=== PATIENT | female | born 1975 | race Caucasian/White ===

== ENCOUNTER → 2017-08-28 | Outpatient (CLI) | payer BC ==
--- NOTE | 2017-08-28 16:15 | RAD ---
Lumbar spine, 3 views, 08/28/2017: History: Left sciatic nerve pain No acute fracture or dislocation is identified. There is a slight lumbar scoliosis. There is mild narrowing of the L5-S1 disc space. Mild scattered marginal spurs are present. There appear to be mild degenerative changes involving the facet joints in the lower lumbar spine. The paraspinous soft tissues are unremarkable. IMPRESSION: 1. Mild degenerative change, particularly at the L5-S1 disc level. 2. No acute bony abnormality is detected.
== END | disposition home or self-care (01) ==
LOC: RAD 15:34
PROVIDERS: ATTEND Nurse Practitioner Family
DX: M54.32 Sciatica, left side (principal); M47.897 Other spondylosis, lumbosacral region
CPT/HCPCS: 72100